=== PATIENT | female | born 1955 ===

== ENCOUNTER 2025-04-26 09:26 | Outpatient (REF) | payer MEDICARE, OTHER, SELFPAY ==
[2025-04-27 09:47] LABS: Chlamydia pneumoniae PCR Not Detected (Not Detect.); Coronavirus 229E PCR Not Detected (Not Detect.); Coronavirus HKU1 PCR Not Detected (Not Detect.); Coronavirus NL63 PCR Not Detected (Not Detect.); Coronavirus OC43 PCR Not Detected (Not Detect.); RSV PCR Not Detected (Not Detect.); Rhino/Enterovirus PCR Not Detected (Not Detect.)
[2025-04-27 10:34] LABS: Influenza A H1 PCR Not Detected (Not Detect.); Influenza A H1-2009 PCR Not Detected (Not Detect.); Influenza A H3 PCR Not Detected (Not Detect.); SARS-CoV-2 PCR Detected (Not Detect.)
== END 2025-04-26 09:27 | disposition home or self-care (01) ==
LOC: HO.LNP 09:26
PROVIDERS: Visit Provider Physician Assistant Medical
DX: J06.9 Acute upper respiratory infection, unspecified (principal); R05.8 Other specified cough; R09.81 Nasal congestion; R51.9 Headache, unspecified
CPT/HCPCS: 87633; 99202

== ENCOUNTER 2025-04-26 09:26 | Outpatient (AMB) | payer MEDICARE, OTHER, SELFPAY ==
--- OUTSIDE RECORDS SUMMARY | 2025-04-26 09:32 | XMS_ITS | Patient Health Record ---
Author Organization [facility] Endocrinolog [facility] Diabetes & Metabolism Address [address] [facility] [address] [place] [id number] Care Team Providers Care Bilingual Receptionist Name Role Phone Sivakumar Borges DO Primary Care Provider Pinky Torres Unavailable [phone] Allergies No Known Allergies Results Component Value Reference Range Notes VITAMIN B12 (COBALAMIN) - 92 7 Reviewed date:04/09/2025 10:03:22 AM Interpretation: Performing Lab:TP, [id number] Eduardo Huang MD Notes/Report: Received Date: FASTING:NO FASTING: NO VITAMIN B12 3515 339-1912 pg/mL T4, FREE - 866 Reviewed date:04/09/2025 10:03:22 AM Interpretation: Performing Lab:TP [id number] Eduardo Huang MD Notes/Report: Received Date: FASTING:NO FASTING: NO T4, FREE 1.4 0.8-1.8 ng/dL TSH - 899 Reviewed date:04/09/2025 10:03:22 AM Interpretation: Performing Lab:TP, [id number] [id number] Eduardo Huang MD Notes/Report: Received Date: FASTING:NO FASTING: NO TSH 0.71 0.40-4.50 mIU/L T3, TOTAL - 859 Reviewed date:04/09/2025 10:03:22 AM Interpretation: Performing [facility] [id number] Eduardo Huang MD Notes/Report: Received Date: FASTING:NO FASTING: NO T3, TOTAL 79 76-181 ng/dL Reason For Referral No Information Medications Medication SIG (Take, Route, Frequency, Duration) Notes Start Date End Date Status Levothyroxine Sodium 50 MCG 1 tablet in the morning on an empty stomach Orally Once a day; Duration: 30 day(s) Active Etodolac 500 MG 1 capsule as needed with food Orally Twice a day Active Vitamin D Active Vitamin B Complex Ac tive Prevagen 10 MG as directed Orally Active dilTIAZem HCl 120 MG as directed Orally Active Pantoprazole Sodium 40 MG 1 tablet 1/2 t o 1 hour before morning meal Orally Once a day Active Atorvastatin Calcium 20 MG 1 tablet Oral ly Once a day Active Levothyroxine Sodium 50 MCG 1 tablet Ora lly Once a day; Duration: 90 days Active Social History Tobacco Use: Social History Observation Description Date Details (start date - stop date) Never Smoker NA - NA Tobacco Use/Smoking Question Answer Notes Are you a nonsmoker Alcohol Screen (Audit-C) Question Answer Notes Did you have a drink containing alcohol in the p ast year? No Points 0 Interpretation Negative Problems Problem Type SNOMED Code ICD Code Onset Dates Problem Status W/U Status Risk Notes Problem Hypothyroidism (89647191) Hypothyroidism, unspecified (E03.9) Active confirmed Problem Non-toxic multinodular goiter (75932346) Nontoxic multinodular goiter (E04.2) Active confirmed Problem Vitamin B deficiency (09758587) Deficiency of other specified B group vitamins (E53.8) Active confirmed Problem Vitamin D deficiency (11471384) Vitamin D deficiency, unspecified (E55.9) Active confirmed Problem Essential hypertension (30770864) Essential (primary) hypertension (I10) Active confirmed Problem Sciatica (43527400) Sciatica, unspecified side (M54.30) Active confirmed Problem Hyperlipidemia (70606898) Hyperlipidemia (E78.5) Active confirmed Vital Signs Heart Rate 63 /min 04/15/2025 Blood pressure diastolic 86 mm Hg 04/15/2025 Height 64 in 04/15/2025 Blood pressure systolic 143 mm Hg 04/15/2025 Weight 156 lbs 04/15/2025 BMI 26.77 kg/m2 04/15/2025 Encounters Encounter Location Date Provider Diagnosis [facility] Diabetes [facility] Metabolism [address] [place] [address] [address] [place] [address] 10/22/2024 Pinky Wise Hypothyroidism, unspecified E03.9 ; Nontoxic multinodular goiter E04.2 ; Vitamin D deficiency, unspecified E55.9 ; Deficiency of other specified B group vitamins E53.8 and Essential (primary) hypertension I10 [facility] Diabetes [facility] Metabolism [address] [place] [address] [address] [place] [address] 04/15/2025 Pinky Wise Hypothyroidism, unspecified E03.9 ; Nontoxic multinodular goiter E04.2 ; Vitamin D deficiency, unspecified E55.9 ; Deficiency of other specified B group vitamins E53.8 ; Essential (primary) hypertension I10 ; Hyperlipidemia E78.5 and Palpitations R00.2 Assessments Encounter Date Diagnosis (ICD Code) Assessment Notes Treatment Notes Treatment Clinical Notes Section Notes 10/22/2024 Hypothyroidism, unspecified (ICD-10 - E03.9) TSH 1.12 from 1.16 from 0.90 from 0.82 from 2.14 from 0.98 from 0.9 from 0.8 from 1.11 from 0.9 from 2.03 from 0.76. Continue levothyroxine 50 mcg daily Discussed how to properly take thyroid medication. Empty stomach, wait 30-60mins before eating and taking other medications. Take 4 hrs away from vitamins, calcium iron and/or supplements 04/15/2025 Hypothyroidism, unspecified (ICD-10 - E03.9) TSH 0.71 from 1.12 from 1.16 from 0.90 from 0.82 from 2.14 from 0.98 from 0.9 from 0.8 from 1.11 from 0.9 from 2.03 from 0.76. Continue levothyroxine 50 mcg daily 6 days /week. Discussed how to properly take thyroid medication. Empty stomach, wait 30-60mins before eating and taking other medications. Take 4 hrs away from vitamins, calcium iron and/or supplements 04/15/2025 Nontoxic multinodular goiter (ICD-10 - E04.2) 09/30/2022 Thyroid US Stable. Repeat [id number] due topresemce of TR3 AND TR4 nodules on left lobe though unchanged in size. 10/22/2024 Nontoxic multinodular goiter (ICD-10 - E04.2) 09/30/2022 Thyroid US Stable. Repeat [id number] due topresemce of TR3 AND TR4 nodules on left lobe though unchanged in size. 10/22/2024 Vitamin D deficiency, unspecified (ICD-10 - E55.9) Vit D 38 from 44 from 43 from 50, cont vitamin D3 2,000 iu twice a week increase dose 5000 iu twice /week. 04/15/2025 Vitamin D deficiency, unspecified (ICD-10 - E55.9) Vit D 38 from 44 from 43 from 50, cont vitamin D3 2,000 iu twice a week increase dose 5000 iu twice /week. 04/15/2025 Deficiency of other specified B group vitamins (ICD-10 - E53.8) B12 level 1059 from 896 from 744 from 868 from 685, cont B12 twice a week 10/22/2024 Deficiency of other specified B group vitamins (ICD-10 - E53.8) B12 level 1059 from 896 from 744 from 868 from 685, cont B12 twice a week 10/22/2024 Essential (primary) hypertension (ICD-10 - I10) Stable, monitor BP at home, keep log and follow up with PCP as directed/PRN. Educated on DASH diet and exercise. 04/15/2025 Essential (primary) hypertension (ICD-10 - I10) Stable, monitor BP at home, keep log and follow up with PCP as directed/PRN. Educated on DASH diet and exercise.need to moniter bp n 04/15/2025 Hyperlipidemia (ICD-10 - E78.5) 04/15/2025 Palpitations (ICD-10 - R00.2) she may have loop recorder Plan Of Treatment Pending Test Test Name Order Date Ultrasound : Thyroid Sonography 12/16/19 16 Ultrasound : Thyroid Sonography 05/11/20 16 Ultrasound : Thyroid Sonography 08/17/20 16 Ultrasound : Thyroid Sonography 02/26/20 17 Ultrasound : Thyroid Sonography 07/19/20 17 Ultrasound : Thyroid Sonography 01/18/20 18 Ultrasound : Thyroid Sonography 07/11/20 18 Ultrasound : Thyroid Sonography 02/20/20 19 Ultrasound : Thyroid Sonography 08/06/20 19 Ultrasound : Thyroid Sonography 01/07/20 20 Ultrasound : Thyroid Sonography 04/14/20 20 Ultrasound : Thyroid Sonography 10/20/19 21 Ultrasound : Thyroid Sonography 04/06/20 21 Ultrasound : Thyroid Sonography 10/11/19 23 Ultrasound : Thyroid Sonography 03/14/20 23 Ultrasound : Thyroid Sonography 09/26/19 24 Ultrasound : Thyroid Sonography 04/16/20 24 Ultrasound : Thyroid Sonography 10/22/19 25 Ultrasound : Thyroid Sonography 04/15/20 25 Ultrasound : Thyroid Sonography 10/19/19 22 Ultrasound : Thyroid Sonography 04/19/20 22 VITAMIN B12 04/06/2021 VITAMIN B12 10/20/2020 VITAMIN B12 01/07/2020 VITAMIN B12 08/06/2019 VITAMIN B12 05/11/2016 VITAMIN B12 12/16/2015 T4, FREE 01/07/2020 T4, FREE 04/06/2021 T3, TOTAL - 859 04/15/2025 T3, TOTAL - 859 10/22/2024 TSH - 899 04/06/2021 TSH - 899 01/07/2020 T3, FREE 01/07/2020 T3, FREE 04/06/2021 VITAMIN D,25-OH,TOTAL,IA 04/06/2021 VITAMIN D,25-OH,TOTAL,IA 10/20/2020 VITAMIN D,25-OH,TOTAL,IA 01/07/2020 VITAMIN D,25-OH,TOTAL,IA 08/06/2019 Vitamin B12 08/17/2016 Vitamin B12 07/19/2017 Vitamin B12 02/25/2017 TSH+T4F+T3Free 02/25/2017 TSH+T4F+T3Free 07/19/2017 TSH+T4F+T3Free 06/17/2015 TSH+T4F+T3Free 08/17/2016 Vitamin D, 25-Hydroxy, Total - 941215 Vitamin D, 25-Hydroxy, Total - 879020 Vitamin D, 25-Hydroxy, Total - 915499 TSH - 899 10/22/2024 TSH - 899 04/15/2025 T4, FREE - 866 04/15/2025 T4, FREE - 866 10/22/2024 VITAMIN B12 (COBALAMIN) - 927 10/22/2024 VITAMIN B12 (COBALAMIN) - 927 04/15/2025 VITAMIN B12 (COBALAMIN) - 927 04/19/2022 Next Appt Details Provider Name:Pinky Wise, 0 10/21/2025 10:00:00 AM, [address] [facility], [address], [place], [address], Insurance Providers Payer Name Payer Address Payer Phone Subscriber Number Group Number Insured Name Patient Relationship to Insured Coverage Start Date Coverage End Date [employer] [place] [employer] [address] SELINA Fox [phone] [id number] Mague Torres Self - patient is the insured [employer] [address] [place] [id number] Mague Torres Self - patient is the insured Medical (General) History Medical History History ICD Code Essential (primary) hypertension I10 Hypothyroidism, unspecified E03.9 Nontoxic multinodular goiter E04.2 Vitamin D deficiency, unspecified E55.9 Deficiency of other specified B group vi tamins E53.8 Sciatica, unspecified side M54.30 Surgical History Surgery Date(Month/Year) left oopherectomy showing teratoma. breast biopsy thyroid uls 04/2016
--- OUTSIDE RECORDS SUMMARY | 2025-04-26 09:32 | XMS_ITS | Clinical Summary ---
Author Organization [facility] Address [address] [place] [address] Care Team Providers Care Park Guide Name Role Phone Sivakumar Borges DO Primary Care Provider Sivakumar Borges DO Unavailable [phone] Encounters Date Type Department Care Team Description 02/07/2025 9:01 AM EDT - 02/07/2025 11:59 PM EDT Hospital Encounter [facility] [address] [address] Encounter for screening mammogram for malignant neoplasm of breast Discharge Disposition: Home or Self Care 02/07/2025 9:01 AM EDT - 02/07/2025 11:59 PM EDT Hospital [facility] [address] [address] Encounter for screening for osteoporosis Discharge Disposition: Home or Self Care 02/07/2025 Travel from Last 3 Months Family History Medical History Relation Name Comments Breast cancer Mother's Sister not sure ag e Relation Name Status Comments Mother's Sister Social History Tobacco Use Types Packs/Day Years Used Date Smoking Tobacco: Never Assessed [facility] Housing Answer Date Recorded Living Situation Not on file 04/21/2023 Housing Problems Not on file 04/21/2023 [facility] Safety Answer Date Recorded Threatened Not on file 04/21/2023 Insulted Not on file 04/21/2023 Physically Hurt Not on file 04/21/2023 Scream Not on file 04/21/2023 Comments No Sex and Gender Information Value Date Recorded Sex Assigned at Not on file Legal Sex Female 1:39 AM EDT Gender Identity Not on file Sexual Orientation Not on file Plan of Treatment Health Maintenance Due Date Last Done Comments Advance Care Planning 1954 CT Colonography 1954 Cologuard 1954 Colonoscopy 1954 Colorectal Cancer Screening 1954 FIT 1954 FOBT 1954 Lipid Panel 1954 Medicare Annual Wellness (AWV) 1954 Sigmoidoscopy 1954 Depression Screening 1966 DTaP/Tdap/Td Vaccines (1 - Tdap) 1973 Pneumococcal Vaccine: 50+ Years (1 of 1 - PCV) 2004 Zoster Vaccines (1 of 2) 2004 COVID-19 Vaccine (4 - season) 2024 07/16/2021, 11/18/2020, 10/28/2020 Influenza Vaccine (#1) 2025 Mammogram 02/07/2026 02/07/2025, 06/0 09/2023, 01/15/2023, Additional history exists Respiratory Syncytial Virus (RSV) 60 years and older and/or patients (1 - 1-dose 75+ series) 2029 Bone Density Scan Completed 02/07/2025, , 01/15/2020 HPV Vaccines Aged Out No longer eligi ble based on patient's age to complete this topic Hepatitis A Vaccines Aged Out No long er eligible based on patient's age to complete this topic Hepatitis B Vaccines Aged Out No long er eligible based on patient's age to complete this topic Meningococcal B Vaccine Aged Out No l onger eligible based on patient's age to complete this topic Meningococcal Vaccine Aged Out No tona kimberly eligible based on patient's age to complete this topic Respiratory Syncytial Virus (RSV) <20 months Aged Out No longer eligible based on patient's age to complete this topic Procedures Procedure Name Priority Date/Time Associated Diagnosis Comments BI MAMMOGRAM SCREENING TOMOSYNTHESIS BILATERAL Routine 02/07/2025 11:00 AM EDT Encounter for screening mammogram for malignant neoplasm of breast DEXA BONE DENSITY Routine 02/07/2025 9:1 9 AM EDT Encounter for screening for osteoporosis from Last 3 Months Results * BI Mammogram Screening W Tomosynthesis Bilateral (02/07/2025 11:00 AM EDT) Anatomical Region Laterality Modality Breast Bilateral Mammography Impressions 02/08/2025 6:50 AM EDT Stable benign bilateral mammography. RECOMMENDED FOLLOWUP: Annual bilateral screening mammogram recommended. BI-RADS category: 2: Benign. AUTOMATED TRACKING RECOMMENDATIONS: Screening Mammo 1 year Breast: Bilateral Created by: Adonay Rowell MD Signed by: Adonay Rowell MD Signed on: 02/08/2025 6:50 EDT Location: [id number] [facility] 02/08/2025 6:50 AM EDT EXAM: AL DIGITAL SCREENING 3D TOMOSYNTHESIS MAMMO-BILATERAL INDICATION: Screening. Routine screening. No current breast complaints. COMPARISON: Comparison to previous bilateral mammography 02/04/2024, 02/15/2023, 12/08/2021, 01/15/2020, 12/07/2018. TECHNIQUE: Craniocaudal and mediolateral oblique digital tomosynthesis images of both breasts were obtained. Synthesized 2D images were reviewed. DENSITY: B - There are scattered areas of fibroglandular density. FINDINGS: No suspicious masses, tissue distortion, or suspicious calcifications are identified. Stable breast tissue pattern bilateral without suspicious finding or interval change from previous. Procedure Note Adonay Rowell MD - 02/08/2025 EXAM: AL DIGITAL SCREENING 3D TOMOSYNTHESIS MAMMO-BILATERAL INDICATION: Screening. Routine screening. No current breast complaints. COMPARISON: Comparison to previous bilateral mammography 02/04/2024,02/15/2023, 12/08/2021, 01/15/2020, 12/07/2018. TECHNIQUE: Craniocaudal and mediolateral oblique digital tomosynthesisimages of both breasts were obtained. Synthesized 2D images werereviewed. DENSITY: B - There are scattered areas of fibroglandular density. FINDINGS: No suspicious masses, tissue distortion, or suspiciouscalcifications are identified. Stable breast tissue pattern bilateralwithout suspicious finding or interval change from previous. IMPRESSION: Stable benign bilateral mammography. RECOMMENDED FOLLOWUP: Annual bilateral screening mammogram recommended. BI-RADS category: 2: Benign. AUTOMATED TRACKING RECOMMENDATIONS: Screening Mammo 1 year Breast: Bilateral Created by: Adonay Rowell MD Signed by: Adonay Rowell MD Signed on: 02/08/2025 6:50 EDT Location: [id number] Sivakumar Borges DO IMG BI PROCEDURES Final Resu lt * DEXA Bone Density Axial Skeleton (02/07/2025 9:19 AM EDT) Anatomical Region Laterality Modality Body N/A Digital Radiogra phy Impressions 02/07/2025 9:40 AM EDT Based on BMD, diagnosis is normal density. Follow up with DEXA and TBS: As clinically indicated. WHO CRITERIA FOR T-SCORES: < or = -2.5 = osteoporosis < -1.0 and -2.5 = osteopenia > or = -1.0 = normal density Created by: Willy Young MD Signed by: Willy Young MD Signed on: 02/07/2025 9:40 EDT Location: [id number] Narrative 02/07/2025 9:40 AM EDT EXAM: DXA AXIAL INDICATION: Postmenopausal. Risk factors for osteoporosis include advanced age. COMPARISON: 01/07/2023. FINDINGS: Spine: Total BMD of the spine L1-4 is 0.950 g/cm2, with a T-score of -0.9 and a Z-score of 1.3. Left Femoral Neck: BMD is 0.733 g/cm2, with a T-score of -1.0 and a Z-score of 0.8. Left Total Hip: BMD is 0.952 g/cm2, with a T-score of 0.1 and a Z-score of 1.6. Right Femoral Neck: BMD is 0.758 g/cm2, with a T-score of -0.8 and a Z-score of 1.0. Right Total Hip: BMD is 0.963 g/cm2, with a T-score of 0.2 and a Z-score of 1.7. Spine BMD has significantly increased by 4.7%. Right hip BMD has decreased by 1.4%. Left hip BMD has significantly decreased by 4.2%. FRAX evaluation calculates 10-year probability of fracture: Major Osteoporotic: 9.0%% Hip: 1.0%% Procedure Note Willy Young MD - 02/07/2025 EXAM: DXA AXIAL INDICATION: Postmenopausal. Risk factors for osteoporosis includeadvanced age. COMPARISON: 01/07/2023. FINDINGS: Spine: Total BMD of the spine L1-4 is 0.950 g/cm2, with a T-score of -0.9and a Z-score of 1.3. Left Femoral Neck: BMD is 0.733 g/cm2, with a T-score of -1.0 and aZ-score of 0.8. Left Total Hip: BMD is 0.952 g/cm2, with a T-score of 0.1 and a Z-score of1.6. Right Femoral Neck: BMD is 0.758 g/cm2, with a T-score of -0.8 and aZ-score of 1.0. Right Total Hip: BMD is 0.963 g/cm2, with a T-score of 0.2 and a Z-scoreof 1.7. Spine BMD has significantly increased by 4.7%. Right hip BMD has decreasedby 1.4%. Left hip BMD has significantly decreased by 4.2%. FRAX evaluation calculates 10-year probability of fracture: Major Osteoporotic: 9.0%% Hip: 1.0%% IMPRESSION: Based on BMD, diagnosis is normal density. Follow up with DEXA and TBS: As clinically indicated. WHO CRITERIA FOR T-SCORES: < or = -2.5 = osteoporosis < -1.0 and -2.5 = osteopenia > or = -1.0 = normal density Created by: Willy Young MD Signed by: Willy Young MD Signed on: 02/07/2025 9:40 EDT Location: [place] [address] Sivakumar Borges DO IMG DXA PROCEDURES Final Res ult from Last 3 Months Insurance MEDICARE [employer] Care Teams Park Guide Relationship Specialty Start Date End Date Sivakumar Borges DO PCP - General 01/05/23 Sivakumar Borges DO [address] [place], [place] [id number] PCP - FACS Attributed Provider 02/04/24
--- OUTSIDE RECORDS SUMMARY | 2025-04-26 09:32 | XMS_ITS | Patient Health Record ---
Author Organization [facility] Address [address] [address] Care Team Providers Care Auxiliary Equipment Tender Name Role Phone Katerina HERNANDEZ, Sivakumar Primary Care Provider Micah Weir MD, Candelario Sanchez [phone] Allergies No Known Allergies Results Component Value Reference Range Notes Gastrointestinal Reviewed date:06/25/2024 01:09:54 PM Interpretation: Performing Lab: Notes/Report: Referring Physician : , Location : [facility] : [address] [place] [address], [place], [place], [address] A :Stomach, Stomach, Antrum Diagnosis Summary :CHM; MILD CHEMICAL/REACTIVE GASTROPATHY MicroScopic Description: NO HELICOBACTER PYLORI ORGANISMS IDENTIFIED ON THE H&E STAIN. B :Esophagus, Esophagus, Mid Diagnosis Summary :VERIFICATION ENGINEER; UNREMARKABLE SQUAMOUS EPITHELIUM MicroScopic Description: NO EOSINOPHILS. Clinical History: Dysphagia Rule Outs: Eosinophilic Esophagitis Site ID:A Gross Description:Received in formalin and labeled Stomach, Antrum is a palencia-pink irregularly-shaped soft tissue fragment which measures 0.3 cm. Entire specimen submitted in 1 cassette(s). Site ID:B Gross Description:Received in formalin and labeled Esophagus, Mid are 2 palencia-pink irregularly-shaped soft tissue fragments which measure 0.4 and 0.2 cm. Entire specimen submitted in 1 cassette(s). Electronically signed by : Dr.Mariam Calderon on :06/25/2024 09:05:57 Reason For Referral No Information Medications Medication SIG (Take, Route, Frequency, Duration) Notes Start Date End Date Status Vitamin D3 50 MCG (1999) 1 capsule Or ally Once a day Active Vitamin B12 1000 MCG 1 tablet Orally Onc e a day Active Pantoprazole Sodium 40 MG TAKE ONE TABLE T BY MOUTH 30 MINUTES TO ONE HOUR BEFORE MORNING MEAL ONCE DAILY; Duration: 90 Active Levothyroxine Sodium 50 MCG 1 tablet Oral 6 x week 10/30/2013 Active Aleve 220 MG 1 tablet with food o r milk as needed Orally every 12 hrs Active Social History Tobacco Use: Social History Observation Description Date Details (start date - stop date) Never Smoker NA - NA AUDIT-C (Standard) Question Answer Notes Did you have a drink contain ing alcohol in the past year? Yes How often did you have six o r more drinks on one occasion in the past year? Less than monthly (1 point) How many drinks did you have on a typical day when you were drinking in the past year? 1 or 2 drinks (0 point) How often did you have a dri nk containing alcohol in the past year? Never (0 point) Points 1 Interpretation Negative Tobacco Control (Standard) Question Answer Notes Tobacco use: Nonsmoker Additional Findings: Tobacco non-user Current no nsmoker Problems Problem Type SNOMED Code ICD Code Onset Dates Problem Status W/U Status Risk Notes Problem Dyskinesia of esophagus (96253822) Dyskinesia of esophagus (K22.4) Active confirmed Problem disorder of stomach (27877081) Other diseases of stomach and duodenum (K31.89) Active confirmed Problem Colon cancer screening (192735365) Colon cancer screening (Z12.11) Active confirmed Problem Lower abdominal pain (62260345) Lower abdominal pain (R10.30) Active confirmed Problem Polyp colon (16467828) Colon polyp (K63.5) Active confirmed Problem Dysphagia (26501219) Dysphagia (R13.10) Active confirmed Problem Internal hemorrhoids (87393172) Grade I internal hemorrhoids (K64.0) Active confirmed Problem Other specified disease of esophagus (K22.89) Active confirmed Problem Gastroesophageal reflux disease (617118329) GERD (K21.9) Active confirmed Problem Schatzki ring (55259604) Schatzki ring (K22.2) Active confirmed Vital Signs Blood pressure diastolic 91 mm Hg 11/02/2024 Weight-kg 76.2 kg 11/02/2024 Height 64 in 11/02/2024 Blood pressure systolic 132 mm Hg 11/02/2024 Weight 168 lbs 11/02/2024 BMI 28.83 kg/m2 11/02/2024 Encounters Encounter Location Date Provider Diagnosis [address] [place] [phone] 05/25/2024 Candelario Carmella Dysphagia R13.10 [facility] [address] [place] [address] 06/19/2024 Candelario Carmella Dysphagia R13.10 ; Schatzki ring K22.2 ; Other diseases of stomach and duodenum K31.89 ; Other specified disease of esophagus K22.89 and Dyskinesia of esophagus K22.4 [place] [address] [place] [address] 09/18/2024 Candelario Carmella Dyskinesia of esophagus K22.4 and GERD K21.[address] [place] [address] [place] [phone] 11/02/2024 Candelario Carmella GERD K21.9 [place] [address] [place] [phone] 04/30/2024 Candelario Carmella [address] [place] [address] [place] [phone] 05/10/2024 Candelario Carmella [place] [place] [address] [place] [phone] 05/25/2024 Sivakumar Borges [place] [place] [address] [place] [phone] 05/25/[address] [place] [phone] 05/25/2024 Candelario Carmella [place] [place] [address] [place] [phone] 06/25/2024 Candelario Carmella [address] [place] [address] [place] [phone] 09/19/2024 Candelario Carmella GERD K21.[address] [place] [phone] 12/06/2024 Candelario Carmella GERD K21.9 [place] [address] [place] [phone] 04/14/2025 Candelario Weir Assessments Encounter Date Diagnosis (ICD Code) Assessment Notes Treatment Notes Treatment Clinical Notes Section Notes 05/25/2024 Dysphagia (ICD-10 - R13.10) I counseled her about the findings.I counseled her on lifestyle and diet modification.Suggest EGD poss dil hospital settingpt to call back to schedule if she wants the procedure 06/19/2024 Josetzki ring (ICD-10 - K22.2) 09/18/2024 Dyskinesia of esophagus (ICD-10 - K22.4) I counseled her about lifestyle and diet modificationTrial of PPI. I counseled about possible side effects. If no improvement, then could consider esophageal manometry for further evaluation. She was not interested in manometry at this time if possible. 09/18/2024 GERD (ICD-10 - K21.9) I counseled her about lifestyle and diet modificationTrial of PPI. I counseled about possible side effects. If no improvement, then could consider esophageal manometry for further evaluation. She was not interested in manometry at this time if possible. Can have further discussion with PCP about postnasal drip/allergies/dry mouth. 09/19/2024 GERD (ICD-10 - K21.9) 11/02/2024 GERD (ICD-10 - K21.9) I counseled her about continued lifestyle and diet modification.Can continue PPI for at least another month. After that can consider trying every other day and wean off as tolerated. If symptoms recur then can restart medication.I counseled her about possible side effects. 12/06/2024 GERD (ICD-10 - K21.9) 06/19/2024 Dysphagia (ICD-10 - R13.10) 06/19/2024 Other diseases of stomach and duodenum (ICD-10 - K31.89) 06/19/2024 Other specified disease of esophagus (ICD-10 - K22.89) 06/19/2024 Dyskinesia of esophagus (ICD-10 - K22.4) Plan Of Treatment Future Test Test Name Order Date Barium Swallow with pill 04/24/2024 EGD 05/25/2024 Insurance Providers Payer Name Payer Address Payer Phone Subscriber Number Group Number Insured Name Patient Relationship to Insured Coverage Start Date Coverage End Date [place] [employer] [address] [address] [place] [address] [id number] Hedge, Mague Self - patient is the insured [employer] [facility] [address] [place] [address] [id number] Mague Torres Self - patient is the insured Medical (General) History Medical History History ICD Code hemorrhoids thyroid disease/hypothyroidism sciatica colon polyps Surgical History Surgery Date(Month/Year) rotator cuff 2019 herniated disc surgery 2011 Tonsillectomy and adenoidectomy at age 3 . LF breast biopsy and mass removal approx imately 8-10 years ago L ovary removed 15-20 years agp Colonoscopy 04/2021 Hospitalization History Reason Date(Month/Year)
[2025-04-26 09:36] VITALS: BP 126/78; PULSE 81; TEMP 36.7; O2SAT 98; BMI 26.9
--- NOTE | 2025-04-26 09:36 | AM.OFFWIN_ITS ---
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 Intake Note: presents with hoarse voice, headache, sometimes productive cough, tested positive for covid Allergies No Known Allergies Allergy (Verified 04/26/25 09:38) Do you need a note to return to daycare/school/sports/work: No HPI HPI Comments History of Present Illness Details History - The patient is a 69-year-old female pr esenting with COVID-19 infection. - Symptoms began on Tuesday with initial presentation resembling a head cold and sinus congestion. - She travelled from [place] on a plane for a family reunion and then went to [facility] to visit with family. - Symptoms worsened by with inc reased coughing and congestion. - Self-administered home COVID-19 test c onfirmed infection. - Patient has been taking ibuprofen for symptom management. - Patient has a history of heart murmur and supraventricular tachycardia (SVT). - Brother, who is high-risk, previously hospitalized for COVID-19, is concerned about exposure. - Her also is sick with cold sym ptoms. - She denies fever, chills, CP, SOB, abd pain, n/v/d, SAMANIEGO, weakness, loss of taste or smell. Physical Exam General: Cooperative, healthy appearing, comfortable and no acute distress Orientation/consciousness: Patient oriented x3 Limitations: No limitations Head: Normal to inspection Ears: Hearing grossly normal bilaterally, external ears normal and TM's normal bilaterally Nose: Normal external nose present, normal nares present, and no nasal discharge present. Face and sinus: Sinuses nontender to palpation. Mouth: Normal oral and palatal mucosa present and moist mucous membranes noted. Throat: Tonsils normal. Uvula is midline. Posterior oropharynx with erythema and no exudates. Eyes: Appearance normal, both eyes and all related structures Neck: Normal visual inspection, full ROM. No lymphadenopathy noted. Respiratory: Clear to auscultation bilaterally. Normal respiratory effort, able to speak in complete sentences. No respiratory distress, not tachypneic, no tripod positioning and no use of accessory muscles. Cardiovascular: Regular rate and rhythm. Normal S1 and S2 Skin: No rashes or lesions noted Patient was informed and verbally consented to the use of an ambient scribe for clinic note documentation during this visit Review of Systems Const All systems reviewed & are unremarkable except as noted in HPI and below Physical Exam Vital Signs: Last Vital Signs Temp 98.0 F 04/26/25 09:36 Pulse 81 04/26/25 09:36 BP 126/78 04/26/25 09:36 Pulse Ox 98 04/26/25 09:36 Oxygen Delivery Method Room Air 04/26/25 09:36 BMI result Body Mass Index 26.9 Assessment & Plan Assessment & Plan (1) Cough with congestion of paranasal sinus: Code(s): R05.8 - Other specified cough; R09.81 - Nasal congestion Plan Most likely covid vs RSV vs flu vs viral illness Plan - Advised her that she is out of the window for Paxlovid being that it is day 5 of symptoms - Prescribed Tessalon Perles for cough management, to be taken three times daily. - Recommended combination of antihistamine and decongestant for congestion relief. - Advised to continue wearing a mask for five days post-quarantine period when in public spaces. - Respiratory panel ordered to confirm diagnosis and rule out other infections. - Results of the respiratory panel to be communicated via phone call later today. - VSS, pt well appearing - tylenol or motrin as needed - follow up as needed Orders: Orders Resp Pathogen Panel - [facility] Today J06.9 - Acute upper respiratory infection, unspecified Medications: New benzonatate 100 mg PO bid-tid PRN 21 caps 0RF Cough 7 days cetirizine-pseudoephedrine 5-120 mg ER 1 tab PO BID 14 tabs 0RF 7 days Coding Level of Care Code New Pt Level 3 (25046) Diagnoses Cough with congestion of paranasal sinus R05.8; R09.81
== END 2025-04-26 09:55 | disposition home or self-care (01) ==
PROVIDERS: Visit Provider Physician Assistant Medical
DX: R05.8 Other specified cough (principal); R09.81 Nasal congestion